=== PATIENT | male | born 1995 | race African-American/Black ===

== ENCOUNTER → 2024-07-24 | Emergency (ER) | payer OTHER ==
[~2024-07-24] VITALS: Ht 185.4 cm; Wt 65.8 kg
[2024-07-24 12:06] VITALS: BP 145/81; TEMP 97.6; O2SAT 99
== END | disposition left against medical advice (07) ==
LOC: ER 11:51
DX: Z00.00 Encounter for general adult medical examination without abnormal findings (principal); Z53.21 Procedure and treatment not carried out due to patient leaving prior to being seen by health care provider

== ENCOUNTER 2024-07-28 16:46 | Emergency (ER) | payer OTHER ==
[~2024-07-28] VITALS: Ht 182.9 cm; Wt 81.6 kg
[2024-07-28 16:50] VITALS: BP 142/96; TEMP 98.1; O2SAT 97
[2024-07-28] MEDS ORDERED: NAPR-1164 PO (18:52)
[2024-07-28] MEDS ORDERED: AMOX-430 PO (18:52)
== END 2024-07-28 19:42 | disposition home or self-care (01) ==
LOC: ER 16:57
DX: S02.401A Maxillary fracture, unspecified side, initial encounter for closed fracture (principal); R51.9 Headache, unspecified; F17.200 Nicotine dependence, unspecified, uncomplicated; Y04.0XXA Assault by unarmed brawl or fight, initial encounter; Y93.89 Activity, other specified; Y92.89 Other specified places as the place of occurrence of the external cause; Y99.8 Other external cause status
CPT/HCPCS: 70450-TC; 70486-TC